=== PATIENT | male | born 1975 | race Caucasian/White ===

== ENCOUNTER → 2016-12-30 | Outpatient (CLI) | payer BC ==
[2016-12-30 08:37] LABS: ALBUMIN 4.2 GM/DL (3.2-5.2); ALBUMIN/GLOBULIN RATIO 1.14 (1.00-1.93); ALKALINE PHOSPHATASE 69 U/L (45-117); ALT/SGPT 37 U/L (12-78); ANION GAP 7 MEQ/L (8-16); AST/SGOT 24 U/L (15-37); BILIRUBIN,TOTAL 0.7 MG/DL (0.2-1.0); BLOOD UREA NITROGEN 13 MG/DL (7-18); CALCIUM LEVEL 9.2 MG/DL (8.5-10.1); CARBON DIOXIDE LEVEL 29 MEQ/L (21-32); CHLORIDE LEVEL 107 MEQ/L (98-107); CHOLESTEROL LEVEL 148 MG/DL (<200); CREATININE FOR GFR 1.12 MG/DL (0.70-1.30); GLOMERULAR FILTRATION RATE > 60.0 (>60); GLUCOSE, FASTING 94 MG/DL (70-105); POTASSIUM SERUM 4.2 MEQ/L (3.5-5.1); SODIUM LEVEL 143 MEQ/L (136-145); TOTAL PROTEIN 7.9 GM/DL (6.4-8.2); TRIGLYCERIDES LEVEL 123 MG/DL (<150)
== END ==
LOC: M LAB 07:41
PROVIDERS: ATTEND Emergency Medicine
DX: I10 Essential (primary) hypertension (principal)

== ENCOUNTER → 2018-02-09 | Outpatient (CLI) | payer BC ==
[2018-02-09 10:44] LABS: ALBUMIN 4.1 GM/DL (3.2-5.2); ALBUMIN/GLOBULIN RATIO 1.05 (1.00-1.93); ALKALINE PHOSPHATASE 74 U/L (45-117); ALT/SGPT 41 U/L (12-78); ANION GAP 8 MEQ/L (8-16); AST/SGOT 22 U/L (7-37); BILIRUBIN,TOTAL 0.7 MG/DL (0.2-1.0); BLOOD UREA NITROGEN 13 MG/DL (7-18); CALCIUM LEVEL 8.8 MG/DL (8.5-10.1); CARBON DIOXIDE LEVEL 28 MEQ/L (21-32); CHLORIDE LEVEL 104 MEQ/L (98-107); CHOLESTEROL LEVEL 149 MG/DL (<200); CHOLESTEROL RISK RATIO 3.311 (<5); CREATININE FOR GFR 1.16 MG/DL (0.70-1.30); GLOMERULAR FILTRATION RATE > 60.0 (>60); GLUCOSE, FASTING 86 MG/DL (70-100); HDL CHOLESTEROL 45 MG/DL (>40); LDL CHOLESTEROL 85 MG/DL (<100); NON-HDL-C 104 MG/DL; POTASSIUM SERUM 4.4 MEQ/L (3.5-5.1); SODIUM LEVEL 140 MEQ/L (136-145); TRIGLYCERIDES LEVEL 93 MG/DL (<150)
== END ==
LOC: M LAB 09:13
DX: I10 Essential (primary) hypertension (principal)
CPT/HCPCS: 80053

== ENCOUNTER 2018-09-11 20:30 | Emergency (ER) | payer BC ==
[~2018-09-11] VITALS: Ht 177.8 cm; Wt 104.5 kg
[2018-09-11] MEDS ORDERED: BLOOD PRESSURE MED (20:46)
[2018-09-11] MEDS ORDERED: ADACEL/BOOSTRIX VACCINE (DIPHTH/PERTUSS/ACELL/TETANUS)0.5ML SYR (90715) IM ONE (23:45)
[2018-09-11] MEDS ORDERED: LIDOCAINE 1% MDV 20ML VIAL IM ONE (23:45)
[2018-09-12] MEDS ORDERED: SULF1TAB93 PO (00:23)
[2018-09-12] MEDS ORDERED: BACT800T5 PO (00:23)
[2018-09-12 00:29] VITALS: BP 129/69
== END 2018-09-12 00:35 | disposition home or self-care (01) ==
LOC: M ED 20:30
DX: S61.220A Laceration with foreign body of right index finger without damage to nail, initial encounter (principal); S61.422A Laceration with foreign body of left hand, initial encounter; W31.89XA Contact with other specified machinery, initial encounter; Y92.89 Other specified places as the place of occurrence of the external cause; Y93.89 Activity, other specified; Y99.0 Civilian activity done for income or pay; Z79.899 Other long term (current) drug therapy; Z88.0 Allergy status to penicillin

== ENCOUNTER → 2019-01-24 | Outpatient (CLI) | payer BC ==
[~2019-01-24] MED LIST: BACT800T5 PO; BLOOD PRESSURE MED; SULF1TAB93 PO
[2019-01-24 08:22] LABS: ALBUMIN 4.2 GM/DL (3.2-5.2); ALT/SGPT 41 U/L (12-78); BLOOD UREA NITROGEN 21 MG/DL (7-18); CALCIUM LEVEL 9.4 MG/DL (8.5-10.1); CARBON DIOXIDE LEVEL 27 MEQ/L (21-32); CHLORIDE LEVEL 104 MEQ/L (98-107); CHOLESTEROL LEVEL 183 MG/DL (<200); CHOLESTEROL RISK RATIO 3.812 (<5); CREATININE FOR GFR 1.08 MG/DL (0.70-1.30); GLOMERULAR FILTRATION RATE > 60.0 (>60); GLUCOSE, FASTING 107 MG/DL (70-100); HDL CHOLESTEROL 48 MG/DL (>40); LDL CHOLESTEROL 111 MG/DL (<100); NON-HDL-C 135 MG/DL; POTASSIUM SERUM 3.9 MEQ/L (3.5-5.1); SODIUM LEVEL 138 MEQ/L (136-145); TOTAL PROTEIN 7.7 GM/DL (6.4-8.2); TRIGLYCERIDES LEVEL 121 MG/DL (<150)
== END ==
LOC: M LAB 07:40
PROVIDERS: ATTEND Physician Assistant
DX: I10 Essential (primary) hypertension (principal)

== ENCOUNTER → 2020-07-07 | Outpatient (REF) | payer BC ==
[2020-07-07 19:41] LABS: ALBUMIN 4.4 GM/DL (3.2-5.2); ALT/SGPT 57 U/L (12-78); BILIRUBIN,TOTAL 0.8 MG/DL (0.2-1.0); BLOOD UREA NITROGEN 22 MG/DL (7-18); CARBON DIOXIDE LEVEL 27 MEQ/L (21-32); CHLORIDE LEVEL 101 MEQ/L (98-107); CHOLESTEROL LEVEL 195 MG/DL (<200); CHOLESTEROL RISK RATIO 4.642 (<5); CREATININE FOR GFR 1.21 MG/DL (0.70-1.30); GLOMERULAR FILTRATION RATE > 60.0 (>60); GLUCOSE, FASTING 69 MG/DL (70-100); HDL CHOLESTEROL 42 MG/DL (>40); LDL CHOLESTEROL 116 MG/DL (<100); NON-HDL-C 153 MG/DL; POTASSIUM SERUM 5.1 MEQ/L (3.5-5.1); SODIUM LEVEL 137 MEQ/L (136-145); TOTAL PROTEIN 8.4 GM/DL (6.4-8.2); TRIGLYCERIDES LEVEL 185 MG/DL (<150)
== END ==
LOC: M LABDRWAD 18:54
PROVIDERS: ATTEND Nurse Practitioner Family
DX: I10 Essential (primary) hypertension (principal)

== ENCOUNTER 2021-06-04 09:27 | Emergency (ER) | payer BC, OTHER ==
[~2021-06-04] VITALS: Ht 177.8 cm; Wt 104.5 kg
[~2021-06-04 09:27] MED LIST changes: +BACTDSTA PO; -SULF1TAB93 PO
[2021-06-04] MEDS ORDERED: LOSA100T5 (09:35)
[2021-06-04] MEDS ORDERED: AMLO1TAB25 (09:35)
[2021-06-04] MEDS ORDERED: ACETAMINOPHEN 500 MG TAB PO ONE (10:15)
[2021-06-04 11:23] VITALS: BP 126/66
== END 2021-06-04 11:38 | disposition home or self-care (01) ==
LOC: M ED 09:27
DX: S76.112A Strain of left quadriceps muscle, fascia and tendon, initial encounter (principal); W00.9XXA Unspecified fall due to ice and snow, initial encounter; Y92.009 Unspecified place in unspecified non-institutional (private) residence as the place of occurrence of the external cause; Y93.9 Activity, unspecified; Y99.9 Unspecified external cause status; Z88.0 Allergy status to penicillin; Z88.2 Allergy status to sulfonamides

== ENCOUNTER → 2021-06-08 | Outpatient (CLI) | payer BC, OTHER ==
[~2021-06-08] MED LIST changes: +AMLO1TAB25; +LOSA100T5
== END ==
LOC: M EKG 12:26
PROVIDERS: ATTEND Orthopaedic Surgery
DX: Z20.828 Contact with and (suspected) exposure to other viral communicable diseases (principal)

== ENCOUNTER → 2024-08-05 | Outpatient (REF) | payer BC, OTHER ==
[~2024-08-05] MED LIST changes: +CLEO300C2 PO
== END ==
LOC: M LAB REF 16:48
PROVIDERS: ATTEND Nurse Practitioner Family
DX: R35.0 Frequency of micturition (principal)

== ENCOUNTER → 2024-12-09 | Outpatient (CLI) | payer BC, OTHER | LOC: M WUC 14:41 | PROVIDERS: ATTEND Nurse Practitioner Family | DX: N40.0 Benign prostatic hyperplasia without lower urinary tract symptoms (principal) ==

== ENCOUNTER → 2025-02-10 | Outpatient (CLI) | payer BC | LOC: M RAD 12:48 | PROVIDERS: ATTEND Nurse Practitioner Family | DX: N20.0 Calculus of kidney (principal) ==